=== PATIENT | male | born 1960 | race Two or more races ===

== ENCOUNTER 2016-08-30 20:47 | Inpatient (IN) | payer MEDICAID, OTHER ==
[2016-08-30] VITALS (8 sets, daily range): BP systolic 88–110; BP diastolic 54–84
[~2016-08-30] VITALS: Ht 185.4 cm; Wt 68.0 kg
--- NOTE | 2016-08-30 20:54 | Emergency Room Report ---
History of Present Illness General Source: Patient Present Illness HPI This is a 56 male brought in by EMS after increased difficulty breathing postoperatively. The patient had surgical fusion of cervical vertebra and had been having some postoperative desaturation. Patient was subsequently re intubated. The patient prior history of cervical disc disease with weakness. The patient had been moving all his extremities. Patient was given steroids and antibiotics after surgery. Patient not been vomiting or having fever. The patient was sent to the hospital after being intubated. Allergies: Coded Allergies: No Known Allergies (Unverified , 08/30/16) Patient History Past Medical History: see triage record Reviewed Nursing Documentation: PMH: Agreed, PSxH: Agreed Nursing Documentation-PMH Past Medical History Deferred: Patient Unconscious Review of Systems All Other Systems: limited - by acuity Physical Exam Sp02 EP Interpretation: normal General Appearance: moderate distress Neck: other - post surgical changes surgical drain in place Respiratory: lungs clear, normal breath sounds Cardiovascular #1: normal peripheral pulses, regular rate, rhythm, no edema Gastrointestinal: normal bowel sounds, non tender, soft, no mass, no organomegaly Musculoskeletal: normal inspection, back normal 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 Total critical care time excluding procedures approximately 45 minutes. Medical Decision Making Diagnostic Impression: Primary Impression: Respiratory failure Additional Impressions: Stridor Diabetes mellitus History of neck surgery ER Course Patient presented after a recurrent difficulty extubation requiring reintubation. Differential diagnosis included was not limited to laryngeal spasm, pneumonia, sedation, among others.Because of complexity of patient's case laboratory testing and imaging studies were ordered. Chest x-ray one view interpreted by me post intubation showed adequate endotracheal tube. There is no evident infiltrate. Patient noted have equal breath sounds bilaterally.Patient was given etomidate initially after marked agitation. Patient was subsequently given started on a propofol drip. Patient was noted to have prior history of diabetes. Patient started on sliding scale. Patient was discussed with Dr. Madera Labs Test 08/30/16 20:49 08/30/16 21:48 White Blood Count 15.5 K/UL (4.8-10.8) Red Blood Count 4.09 M/UL (4.70-6.10) Hemoglobin 13.3 G/DL (14.2-18.0) Hematocrit 39.8 % (42.0-52.0) Mean Corpuscular Volume 97 FL (80-99) Mean Corpuscular Hemoglobin 32.6 PG (27.0-31.0) Mean Corpuscular Hemoglobin Concent 33.5 G/DL (32.0-36.0) Red Cell Distribution Width 11.7 % (11.6-14.8) Platelet Count 219 K/UL (150-450) Mean Platelet Volume 8.1 FL (6.5-10.1) Neutrophils (%) (Auto) 89.6 % (45.0-75.0) Lymphocytes (%) (Auto) 4.9 % (20.0-45.0) Monocytes (%) (Auto) 5.0 % (1.0-10.0) Eosinophils (%) (Auto) 0.0 % (0.0-3.0) Basophils (%) (Auto) 0.5 % (0.0-2.0) Prothrombin Time 10.3 SEC (9.30-11.50) Prothromb Time International Ratio 1.0 (0.9-1.1) Activated Partial Thromboplast Time 22 SEC (23-33) Sodium Level 142 mEQ/L (135-145) Potassium Level 3.2 mEQ/L (3.4-4.9) Chloride Level 100 mEQ/L (98-107) Carbon Dioxide Level 26 mEQ/L (20-30) Anion Gap 16 (5-15) Blood Urea Nitrogen 15 mg/dL (7-23) Creatinine 0.6 mg/dL (0.7-1.2) Estimat Glomerular Filtration Rate > 60 mL/min (>60) Glucose Level 171 mg/dL (74-106) Calcium Level 7.7 mg/dL (8.6-10.2) Total Bilirubin 0.3 mg/dL (0.0-1.2) Aspartate Amino Transf (AST/SGOT) 18 U/L (5-40) Alanine Aminotransferase (ALT/SGPT) 12 U/L (3-41) Alkaline Phosphatase 42 U/L (40-129) Total Protein 5.5 g/dL (6.6-8.7) Albumin 3.3 g/dL (3.5-5.2) Globulin 2.2 g/dL Albumin/Globulin Ratio 1.5 (1.0-2.7) Arterial Blood pH 7.350 (7.350-7.450) Arterial Blood Partial Pressure CO2 49.2 mmHg (35.0-45.0) Arterial Blood Partial Pressure O2 103.0 mmHg (75.0-100.0) Arterial Blood HCO3 27.1 mmol/L (22.0-26.0) Arterial Blood Oxygen Saturation 97.9 % (92.0-98.0) Arterial Blood Base Excess 1.0 Edmund Test Positive EKG Diagnostic Results Rate: normal - 103 Rhythm: NSR ST Segments: no acute changes Rhythm Strip Diag. Results EP Interpretation: yes Rhythm: NSR, no PVC's, no ectopy Chest X-Ray Diagnostic Results EP Interpretation: Yes Findings: no consolidation, no effusion, no pneumothorax, no acute cardiopulmonary disease, other - adequate ETT Number of Views: 1 Status: unchanged Disposition: ADMITTED INPATIENT Condition: Critical Rik Ware Aug 30, 2016 20:54
[2016-08-30] MEDS ORDERED: Etomidate 40mg/20ml Inj IV ONE (21:00)
[2016-08-30 21:51] LABS: ABG ALLEN TEST POSITIVE; ABG PCO2 49.2 mmHg (35.0-45.0)
[2016-08-30 22:19] LABS: BASOPHILS % (AUTO) 0.5 % (0.0-2.0); LYMPHOCYTES % (AUTO) 4.9 % (20.0-45.0); MEAN CORPUSCULAR HEMOGLOBIN 32.6 PG (27.0-31.0); MEAN CORPUSCULAR HGB CONC 33.5 G/DL (32.0-36.0); MEAN CORPUSCULAR VOLUME 97 FL (80-99); MEAN PLATELET VOLUME 8.1 FL (6.5-10.1); NEUTROPHILS % (AUTO) 89.6 % (45.0-75.0); PLATELET COUNT 219 K/UL (150-450); RED BLOOD COUNT 4.09 M/UL (4.70-6.10); RED CELL DISTRIBUTION WIDTH 11.7 % (11.6-14.8); WHITE BLOOD COUNT 15.5 K/UL (4.8-10.8)
[2016-08-30 22:22] LABS: PROTHROMBIN TIME 10.3 SEC (9.30-11.50)
[2016-08-30 22:44] LABS: ALANINE AMINOTRANSFERASE 12 U/L (3-41); ALBUMIN/GLOBULIN RATIO 1.5 (1.0-2.7); ANION GAP 16 (5-15); ASPARTATE AMINO TRANSFERASE 18 U/L (5-40); CALCIUM 7.7 mg/dL (8.6-10.2); CARBON DIOXIDE 26 mEQ/L (20-30); CHLORIDE 100 mEQ/L (98-107); CREATININE 0.6 mg/dL (0.7-1.2); GLOMERULAR FILTRATION RATE > 60 mL/min (>60); HEMOLYSIS 17; POTASSIUM 3.2 mEQ/L (3.4-4.9); SODIUM 142 mEQ/L (135-145); TOTAL PROTEIN 5.5 g/dL (6.6-8.7)
[2016-08-31] VITALS (14 sets, daily range): BP systolic 92–135; BP diastolic 58–89
[2016-08-31] MEDS: NovoLOG Insulin Flexpen SUBQ SCH ×5 (02:07→22:11)
[2016-08-31] MEDS ORDERED: Morphine Sulfate 4mg/ml Inj IVP ONE (03:15)
[2016-08-31 03:43] LABS: MEAN CORPUSCULAR HEMOGLOBIN 32.5 PG (27.0-31.0); MEAN CORPUSCULAR HGB CONC 34.4 G/DL (32.0-36.0); MEAN CORPUSCULAR VOLUME 95 FL (80-99); MEAN PLATELET VOLUME 7.1 FL (6.5-10.1); PLATELET COUNT 233 K/UL (150-450); RED BLOOD COUNT 3.96 M/UL (4.70-6.10); RED CELL DISTRIBUTION WIDTH 11.3 % (11.6-14.8); WHITE BLOOD COUNT 17.8 K/UL (4.8-10.8)
[2016-08-31 04:01] LABS: ANION GAP 16 (5-15); CALCIUM 8.6 mg/dL (8.6-10.2); CARBON DIOXIDE 24 mEQ/L (20-30); CHLORIDE 95 mEQ/L (98-107); CREATININE 0.5 mg/dL (0.7-1.2); GLOMERULAR FILTRATION RATE > 60 mL/min (>60); HEMOLYSIS 35; POTASSIUM 4.9 mEQ/L (3.4-4.9); SODIUM 135 mEQ/L (135-145)
[2016-08-31 04:17] LABS: TROPONIN I < 0.30 ng/mL (<=0.30)
[2016-08-31] MEDS ORDERED: Dexamethasone 4mg/ml vial ONE (06:00)
[2016-08-31] MEDS ORDERED: Dexamethasone 4mg/ml vial IVP ONE (06:15)
[2016-08-31] MEDS ORDERED: Racemic EPINEPHrine 2.25% 0.5ml HHN ONE (07:00)
[2016-08-31] MEDS ORDERED: SOMA350 MG PO (10:32)
[2016-08-31] MEDS ORDERED: ATIVAN0.5 MG ORAL (10:32)
[2016-08-31] MEDS ORDERED: XANAX0.25 MG ORAL (10:32)
[2016-08-31] MEDS ORDERED: Morphine Sulfate 2mg/ml Inj IVP PRN ×2 (13:00→18:00)
--- NOTE | 2016-08-31 13:00 | Diagnostic Imaging Report ---
Indication: Dyspnea Comparison: None A single view chest radiograph was obtained. Findings: Platelike atelectasis at the right lung base demonstrated. There is a central line present on the right. The tip crosses midline and may be in the left innominate vein. Endotracheal tube position is satisfactory. Heart size is normal. The bones are osteopenic. Impression: Right subclavian central line as described above Endotracheal tube in good position Mild right basal atelectasis
[2016-08-31] MEDS ORDERED: Albuterol ud Inhalation HHN PRN (13:15)
[2016-08-31] MEDS: LORazepam Inj 2mg/ml 1ml IV PRN ×3 (13:26→22:01)
[2016-08-31] MEDS ORDERED: Albuterol ud Inhalation HHN SCH (15:00)
--- NOTE | 2016-08-31 15:33 | Cardiology Report ---
APPROVED REPORT EKG Measurement Heart [id number] Sinus tachycardia Otherwise normal ECG
--- NOTE | 2016-08-31 19:28 | History and Physical Report ---
DATE OF ADMISSION: 08/30/2016 HISTORY OF PRESENT ILLNESS: The patient is a 56-year-old male undergoing surgical fusion. The patient postoperatively was noted to have stridor. [facility], the patient was transferred to the emergency room. The patient was intubated and now extubated, remained stable with no significant stridor noted . PAST MEDICAL HISTORY: Notable for cervical disk disease, significant radiculopathy and weakness, history of alcohol use, history of smoking, MEDICATIONS: Reviewed. ALLERGIES: Reviewed. PHYSICAL EXAMINATION: GENERAL: The patient is a well-developed male. The patient is alert, no significant distress. VITAL SIGNS: Blood pressure 134/72, pulse 104, respirations 16, saturation 100%. HEENT: Negative. NECK: Supple. No stridor, line noted. LUNGS: Good air entry. CARDIAC: S1 and S2. Borderline tachycardia. ABDOMEN: Soft, nontender. EXTREMITIES: No edema. LABORATORY DATA: Reviewed. Arterial blood gasses, pH 7.35, pCO2 49, pO2 103. White cell count 17.8, hematocrit 37. IMPRESSION: 1. Status post cervical fusion with associated stridor. 2. Leukocytosis. 3. Diabetes. 4. Cervical disk disease. RECOMMENDATIONS: [facility]. Monitor airway, nebulized therapy, racemic epinephrine if needed, and if the patient is otherwise stable we will transfer him. Michele Madera M.D. DR: Citlalli JOB#: [id number] CC: CELI
[2016-08-31] MEDS: Morphine Sulfate 4mg/ml Inj IVP PRN ×2 (19:30→23:17)
[2016-08-31] MEDS: Albuterol ud Inhalation HHN SCH ×2 (19:54→23:00)
[2016-08-31] MEDS: Levemir Flexpen SUBQ SCH (22:10)
[2016-08-31] MEDS ORDERED: LANTUS SOL100 UNIT/1 SUBQ (22:33)
[2016-08-31] MEDS ORDERED: NORCO 10-325 T1 EACH ORAL (22:33)
[2016-09-01] VITALS: BP 110/65
[2016-09-01] MEDS: LORazepam Inj 2mg/ml 1ml IV PRN ×2 (01:47→22:49)
[2016-09-01] MEDS: Morphine Sulfate 4mg/ml Inj IVP PRN (02:54)
[2016-09-01] MEDS: Albuterol ud Inhalation HHN SCH ×6 (02:56→23:19)
[2016-09-01 04:00] VITALS: BP 113/73
[2016-09-01] MEDS: NovoLOG Insulin Flexpen SUBQ SCH ×4 (06:30→21:16)
[2016-09-01 07:08] LABS: ANION GAP 14 (5-15); CALCIUM 8.6 mg/dL (8.6-10.2); CARBON DIOXIDE 28 mEQ/L (20-30); CHLORIDE 99 mEQ/L (98-107); CREATININE 0.5 mg/dL (0.7-1.2); GLOMERULAR FILTRATION RATE > 60 mL/min (>60); HEMOLYSIS 2; POTASSIUM 3.8 mEQ/L (3.4-4.9); SODIUM 141 mEQ/L (135-145)
[2016-09-01 07:13] LABS: EOSINOPHILS % (AUTO) 0.5 % (0.0-3.0); LYMPHOCYTES % (AUTO) 20.3 % (20.0-45.0); MEAN CORPUSCULAR HEMOGLOBIN 32.2 PG (27.0-31.0); MEAN CORPUSCULAR HGB CONC 33.9 G/DL (32.0-36.0); MEAN CORPUSCULAR VOLUME 95 FL (80-99); MEAN PLATELET VOLUME 7.8 FL (6.5-10.1); MONOCYTES % (AUTO) 14.3 % (1.0-10.0); NEUTROPHILS % (AUTO) 63.9 % (45.0-75.0); PLATELET COUNT 238 K/UL (150-450); RED BLOOD COUNT 4.07 M/UL (4.70-6.10); RED CELL DISTRIBUTION WIDTH 11.4 % (11.6-14.8); WHITE BLOOD COUNT 11.2 K/UL (4.8-10.8)
[2016-09-01 08:15] VITALS: BP 126/79
--- NOTE | 2016-09-01 09:03 | General Progress Note ---
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 incentive spirometry 2. monitor blood sugars 3. PT evaluation and therapy 4. Hydration 5. Pain management 6. discharge once stable to [facility] Subjective Allergies: Coded Allergies: No Known Allergies (Unverified , 08/30/16) Subjective awake no sob Objective Last 24 Hour Vital Signs Date Time Temp Pulse Resp B/P Pulse Ox O2 Delivery O2 Flow Rate FiO2 09/01/16 08:15 97.8 111 20 126/79 95 Room Air 09/01/16 08:00 103 19 100 Nasal Cannula 2.0 09/01/16 07:50 103 16 97 Nasal Cannula 2.0 09/01/16 07:49 Nasal Cannula 2.0 09/01/16 07:48 97 Nasal Cannula 2.0 09/01/16 04:00 97.4 98 16 113/73 98 Room Air 09/01/16 03:06 107 14 98 Nasal Cannula 2.0 28 09/01/16 02:59 28 09/01/16 02:58 105 18 96 Nasal Cannula 2.0 28 09/01/16 00:00 97.9 109 16 110/65 95 Room Air 08/31/16 23:12 Nasal Cannula 08/31/16 23:11 108 18 99 Nasal Cannula 3.0 32 08/31/16 20:00 98.4 08/31/16 19:59 114 20 99 Nasal Cannula 2.0 28 08/31/16 19:53 98 Nasal Cannula 2.0 28 08/31/16 19:53 Nasal Cannula 2.0 28 08/31/16 19:51 28 08/31/16 19:51 110 20 98 Nasal Cannula 2.0 36 08/31/16 16:00 98.4 96 18 124/76 96 Room Air 08/31/16 14:34 99 18 117/70 100 Nasal Cannula 2.0 08/31/16 14:04 98.0 08/31/16 11:00 100 18 135/76 100 Nasal Cannula 2.0 08/31/16 10:36 94 12 Nasal Cannula 2.0 36 08/31/16 10:05 94 12 119/79 100 Nasal Cannula 2.0 Intake and Output 08/31/16 09/01/16 19:00 07:00 Intake Total 400 ml 640 ml Output Total 3675 ml 1175 ml Balance -3275 ml -535 ml Intake Oral 240 ml IV Total 400 ml 400 ml Output Urine Total 3500 ml 1175 ml Drainage Total 175 ml # Bowel Movements 1 Laboratory Tests 09/01/16 06:00: White Blood Count 11.2H, Red Blood Count 4.07L, Hemoglobin 13.1L, Hematocrit 38.5L, Mean Corpuscular Volume 95, Mean Corpuscular Hemoglobin 32.2H, Mean Corpuscular Hemoglobin Concent 33.9, Red Cell Distribution Width 11.4L, Platelet Count 238, Mean Platelet Volume 7.8, Neutrophils (%) (Auto) 63.9, Lymphocytes (%) (Auto) 20.3, Monocytes (%) (Auto) 14.3H, Eosinophils (%) (Auto) 0.5, Basophils (%) (Auto) 1.0, Sodium Level 141, Potassium Level 3.8, Chloride Level 99, Carbon Dioxide Level 28, Anion Gap 14, Blood Urea Nitrogen 8, Creatinine 0.5L, Estimat Glomerular Filtration Rate > 60, Glucose Level 102#, Calcium Level 8.6 Height (Feet): 6 Height (Inches): 1.00 Weight (Pounds): 150 Objective WDWN NAD clear breath sounds bilaterally without rhonchi or wheeze S1S2RR tachy without MRG NABS nontender no HSM no CCE nonfocal ELIAZAR SAGASTUME Sep 01, 2016 09:03
[2016-09-01] MEDS: Levemir Flexpen SUBQ SCH ×2 (09:39→21:14)
[2016-09-01] MEDS: HYDROmorphone 1mg/ml Carpuject IVP PRN ×4 (09:40→21:12)
[2016-09-01 11:23] VITALS: BP 110/71
[2016-09-01 15:41] VITALS: BP 120/71
[2016-09-01 20:00] VITALS: BP 105/61
[2016-09-02] VITALS: BP 120/84
[2016-09-02] MEDS: HYDROmorphone 1mg/ml Carpuject IVP PRN ×3 (03:45→21:42)
[2016-09-02 04:00] VITALS: BP 114/76
[2016-09-02] MEDS: Albuterol ud Inhalation HHN SCH ×6 (04:29→23:08)
[2016-09-02] MEDS: LORazepam Inj 2mg/ml 1ml IV PRN ×2 (04:44→13:36)
[2016-09-02] MEDS: NovoLOG Insulin Flexpen SUBQ SCH ×4 (06:05→21:44)
[2016-09-02] MEDS: Levemir Flexpen SUBQ SCH ×2 (08:00→21:44)
[2016-09-02 08:34] VITALS: BP 144/68
--- NOTE | 2016-09-02 08:40 | General Progress Note ---
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 (3) Respiratory failure ICD Codes: J96.90 - Respiratory failure, unspecified, unspecified whether with hypoxia or hypercapnia SNOMED: 348935215 Qualifiers: Qualified Codes: J96.01 - Acute respiratory failure with hypoxia Assessment/Plan continue same drain 90 cc over 24 hours dc in am dc planning to SNF Subjective Allergies: Coded Allergies: No Known Allergies (Unverified , 08/30/16) Subjective awake no sob Objective Last 24 Hour Vital Signs Date Time Temp Pulse Resp B/P Pulse Ox O2 Delivery O2 Flow Rate FiO2 09/02/16 08:34 97.5 84 20 144/68 96 Room Air 09/02/16 08:11 82 16 98 Room Air 09/02/16 08:11 80 16 94 Room Air 09/02/16 07:45 95 Room Air 09/02/16 07:45 Room Air 09/02/16 04:34 90 18 100 Room Air 09/02/16 04:28 82 16 96 Room Air 09/02/16 04:00 97.5 79 18 114/76 97 Room Air 09/02/16 00:00 97.3 84 16 120/84 96 Room Air 09/01/16 23:31 96 18 99 Room Air 09/01/16 23:18 86 16 97 Room Air 09/01/16 22:00 98.1 09/01/16 20:00 98.1 84 16 105/61 96 Room Air 09/01/16 19:48 92 18 100 Room Air 09/01/16 19:43 90 16 97 Room Air 09/01/16 19:43 Room Air 09/01/16 19:43 97 Room Air 09/01/16 15:47 Room Air 09/01/16 15:45 Room Air 09/01/16 15:41 97.7 84 15 120/71 95 Room Air 09/01/16 11:59 18 100 Room Air 09/01/16 11:50 80 16 96 Room Air 09/01/16 11:23 97.3 89 20 110/71 97 Room Air Intake and Output 09/01/16 09/02/16 19:00 07:00 Intake Total 1560 ml 1440 ml Output Total 630 ml 1920 ml Balance 930 ml -480 ml Intake Oral 360 ml 540 ml IV Total 1200 ml 900 ml Output Urine Total 600 ml 1900 ml Drainage Total 30 ml 20 ml # Bowel Movements 2 Height (Feet): 6 Height (Inches): 1.00 Weight (Pounds): 150 Objective WDWN NAD clear breath sounds bilaterally without rhonchi or wheeze S1S2RR tachy without MRG NABS nontender no HSM no CCE nonfocal ELIAZAR SAGASTUME Sep 02, 2016 08:40
[2016-09-02 12:02] VITALS: BP 136/69
[2016-09-02 16:00] VITALS: BP 154/73
[2016-09-02 20:00] VITALS: BP 103/68
[2016-09-03] VITALS: BP 105/72
[2016-09-03] MEDS: LORazepam Inj 2mg/ml 1ml IV PRN ×3 (00:22→21:51)
[2016-09-03] MEDS: Albuterol ud Inhalation HHN SCH ×6 (03:10→23:00)
[2016-09-03] MEDS: HYDROmorphone 1mg/ml Carpuject IVP PRN ×2 (03:51→08:13)
[2016-09-03 04:00] VITALS: BP 112/71
[2016-09-03] MEDS: NovoLOG Insulin Flexpen SUBQ SCH ×4 (07:09→21:58)
[2016-09-03 07:57] VITALS: BP 116/74
[2016-09-03] MEDS ORDERED: Bacitracin Oint UD TOPIC PRN (08:00)
[2016-09-03] MEDS: Levemir Flexpen SUBQ SCH ×2 (08:13→21:59)
--- NOTE | 2016-09-03 08:18 | General Progress Note ---
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 (3) Respiratory failure ICD Codes: J96.90 - Respiratory failure, unspecified, unspecified whether with hypoxia or hypercapnia SNOMED: 750229204 Qualifiers: Qualified Codes: J96.01 - Acute respiratory failure with hypoxia Assessment/Plan drains removed reduce pain meds dc planning to SNF Subjective Allergies: Coded Allergies: No Known Allergies (Unverified , 08/30/16) Subjective awake no sob Objective Last 24 Hour Vital Signs Date Time Temp Pulse Resp B/P Pulse Ox O2 Delivery O2 Flow Rate FiO2 09/03/16 07:57 98.0 66 18 116/74 96 Room Air 09/03/16 06:55 66 18 99 Room Air 09/03/16 06:49 65 18 96 Room Air 09/03/16 04:00 98.4 86 19 112/71 98 Room Air 09/03/16 03:16 94 20 98 Room Air 09/03/16 03:09 92 18 96 Room Air 09/03/16 00:00 98.2 83 20 105/72 98 Room Air 09/02/16 23:17 92 18 98 Room Air 09/02/16 23:08 90 18 97 Room Air 09/02/16 22:12 98.6 09/02/16 20:00 98.6 92 20 103/68 97 Room Air 09/02/16 19:07 90 18 99 Room Air 09/02/16 19:00 85 18 96 Room Air 09/02/16 18:59 96 Room Air 09/02/16 18:59 Room Air 09/02/16 16:00 98.6 61 20 154/73 97 Room Air 18 09/02/16 15:15 86 18 95 Room Air 09/02/16 12:02 97.8 86 20 136/69 95 Room Air 20 09/02/16 08:34 97.5 84 20 144/68 96 Room Air Intake and Output 09/02/16 09/03/16 19:00 07:00 Intake Total 1800 ml 1340 ml Output Total 1820 ml 664 ml Balance -20 ml 676 ml Intake Oral 1100 ml 240 ml IV Total 700 ml 1100 ml Output Urine Total 1800 ml 650 ml Drainage Total 20 ml 14 ml Height (Feet): 6 Height (Inches): 1.00 Weight (Pounds): 150 Objective WDWN NAD clear breath sounds bilaterally without rhonchi or wheeze S1S2RR tachy without MRG NABS nontender no HSM no CCE nonfocal ELIAZAR SAGASTUME Sep 03, 2016 08:18
[2016-09-03] MEDS ORDERED: Norco 5mg/325mg tab ORAL PRN (10:30)
[2016-09-03 11:22] LABS: BASOPHILS % (AUTO) 0.7 % (0.0-2.0); EOSINOPHILS % (AUTO) 0.3 % (0.0-3.0); LYMPHOCYTES % (AUTO) 11.1 % (20.0-45.0); MEAN CORPUSCULAR HEMOGLOBIN 31.4 PG (27.0-31.0); MEAN CORPUSCULAR HGB CONC 33.4 G/DL (32.0-36.0); MEAN CORPUSCULAR VOLUME 94 FL (80-99); MEAN PLATELET VOLUME 6.6 FL (6.5-10.1); MONOCYTES % (AUTO) 8.1 % (1.0-10.0); NEUTROPHILS % (AUTO) 79.9 % (45.0-75.0); PLATELET COUNT 305 K/UL (150-450); RED BLOOD COUNT 4.15 M/UL (4.70-6.10); RED CELL DISTRIBUTION WIDTH 10.9 % (11.6-14.8); WHITE BLOOD COUNT 11.8 K/UL (4.8-10.8)
[2016-09-03 11:55] LABS: ANION GAP 13 (5-15); CARBON DIOXIDE 30 mEQ/L (20-30); CHLORIDE 97 mEQ/L (98-107); CREATININE 0.4 mg/dL (0.7-1.2); GLOMERULAR FILTRATION RATE > 60 mL/min (>60); HEMOLYSIS 3; POTASSIUM 3.6 mEQ/L (3.4-4.9); SODIUM 140 mEQ/L (135-145)
[2016-09-03 12:26] VITALS: BP 112/68
[2016-09-03 16:00] VITALS: BP 118/74
[2016-09-03 19:00] VITALS: BP 108/80
[2016-09-03] MEDS: Norco 10mg/325mg tab ORAL PRN (20:36)
[2016-09-04] VITALS: BP 101/65
[2016-09-04] MEDS: Norco 10mg/325mg tab ORAL PRN ×3 (00:28→17:34)
[2016-09-04] MEDS: LORazepam Inj 2mg/ml 1ml IV PRN ×2 (01:20→11:43)
[2016-09-04] MEDS: Albuterol ud Inhalation HHN SCH ×6 (03:00→22:00)
[2016-09-04 04:00] VITALS: BP 105/64
[2016-09-04] MEDS: NovoLOG Insulin Flexpen SUBQ SCH ×4 (06:24→21:25)
[2016-09-04 08:00] VITALS: BP 116/74
[2016-09-04] MEDS: Levemir Flexpen SUBQ SCH ×2 (09:00→21:26)
--- NOTE | 2016-09-04 10:10 | General Progress Note ---
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 (3) Respiratory failure ICD Codes: J96.90 - Respiratory failure, unspecified, unspecified whether with hypoxia or hypercapnia SNOMED: 436193930 Qualifiers: Qualified Codes: J96.01 - Acute respiratory failure with hypoxia Assessment/Plan drains removed tolerating pain meds off IV fluids po pain meds dc planning to SNF Subjective Allergies: Coded Allergies: No Known Allergies (Unverified , 08/30/16) Subjective awake no sob Objective Last 24 Hour Vital Signs Date Time Temp Pulse Resp B/P Pulse Ox O2 Delivery O2 Flow Rate FiO2 09/04/16 08:37 103 16 99 Room Air 21 09/04/16 08:21 101 16 96 Room Air 21 09/04/16 08:21 21 09/04/16 04:00 97.0 80 18 105/64 97 Room Air 09/04/16 03:00 Room Air 09/04/16 03:00 78 16 95 Room Air 09/04/16 01:27 97.7 09/04/16 00:00 97.7 76 18 101/65 100 Room Air 09/03/16 23:28 Room Air 09/03/16 23:28 72 18 95 Room Air 09/03/16 19:34 97.7 09/03/16 19:20 Room Air 09/03/16 19:20 76 18 96 Room Air 09/03/16 19:00 97.5 90 20 108/80 97 Room Air 09/03/16 16:00 97.7 100 20 118/74 96 Room Air 09/03/16 15:46 Room Air 09/03/16 15:44 Room Air 09/03/16 12:26 97.7 68 18 112/68 95 Room Air 09/03/16 10:19 67 18 96 Room Air 09/03/16 10:18 67 18 96 Room Air Intake and Output 09/03/16 09/04/16 19:00 07:00 Intake Total 1240 ml 440 ml Output Total 200 ml Balance 1240 ml 240 ml Intake Oral 240 ml 320 ml IV Total 1000 ml Tube Feeding 120 ml Output Urine Total 200 ml # Voids 1 8 Laboratory Tests 09/03/16 10:45: White Blood Count 11.8H, Red Blood Count 4.15L, Hemoglobin 13.0L, Hematocrit 39.0L, Mean Corpuscular Volume 94, Mean Corpuscular Hemoglobin 31.4H, Mean Corpuscular Hemoglobin Concent 33.4, Red Cell Distribution Width 10.9L, Platelet Count 305, Mean Platelet Volume 6.6, Neutrophils (%) (Auto) 79.9H, Lymphocytes (%) (Auto) 11.1L, Monocytes (%) (Auto) 8.1, Eosinophils (%) (Auto) 0.3, Basophils (%) (Auto) 0.7, Sodium Level 140, Potassium Level 3.6, Chloride Level 97L, Carbon Dioxide Level 30, Anion Gap 13, Blood Urea Nitrogen 7, Creatinine 0.4L, Estimat Glomerular Filtration Rate > 60, Glucose Level 42L, Calcium Level 9.0 Height (Feet): 6 Height (Inches): 1.00 Weight (Pounds): 150 Objective WDWN NAD clear breath sounds bilaterally without rhonchi or wheeze S1S2RR tachy without MRG NABS nontender no HSM no CCE nonfocal ELIAZAR SAGASTUME Sep 04, 2016 10:10
[2016-09-04 12:00] VITALS: BP 107/62
[2016-09-04 19:35] VITALS: BP 125/69
[2016-09-04] MEDS: Zolpidem 5mg tab ORAL PRN (21:16)
[2016-09-04 23:26] VITALS: BP_SYST 105; BP_SYST 83; BP_DIAS 50; BP_DIAS 70
[2016-09-05] MEDS: Albuterol ud Inhalation HHN SCH ×4 (03:00→15:30)
[2016-09-05 04:00] VITALS: BP 116/91
[2016-09-05] MEDS: Norco 10mg/325mg tab ORAL PRN ×4 (04:22→20:10)
[2016-09-05] MEDS: NovoLOG Insulin Flexpen SUBQ SCH ×4 (06:30→21:00)
[2016-09-05 07:55] VITALS: BP 105/72
[2016-09-05] MEDS: Levemir Flexpen SUBQ SCH ×2 (08:05→21:23)
--- NOTE | 2016-09-05 11:08 | General Progress Note ---
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 (3) Respiratory failure ICD Codes: J96.90 - Respiratory failure, unspecified, unspecified whether with hypoxia or hypercapnia SNOMED: 299240754 Qualifiers: Qualified Codes: J96.01 - Acute respiratory failure with hypoxia Assessment/Plan drains removed tolerating pain meds po pain meds dc planning today to SNF Subjective Allergies: Coded Allergies: No Known Allergies (Unverified , 08/30/16) Subjective awake wants to smoke Objective Last 24 Hour Vital Signs Date Time Temp Pulse Resp B/P Pulse Ox O2 Delivery O2 Flow Rate FiO2 09/05/16 10:57 88 19 95 Room Air 2.0 09/05/16 10:57 88 19 95 Room Air 09/05/16 07:55 97.3 86 18 105/72 96 Room Air 09/05/16 07:00 21 09/05/16 07:00 95 18 99 Room Air 09/05/16 07:00 95 19 99 Room Air 09/05/16 04:00 97.7 98 19 116/91 92 Room Air 09/05/16 03:10 99 18 99 Room Air 09/05/16 03:00 92 18 96 Room Air 09/05/16 03:00 21 09/04/16 23:26 96.9 78 16 105/70 96 Room Air 09/04/16 22:10 102 18 98 Room Air 09/04/16 22:00 97 18 95 Room Air 09/04/16 19:35 97.7 117 17 125/69 93 Room Air 09/04/16 19:00 Room Air 09/04/16 19:00 97 18 Room Air 09/04/16 19:00 Room Air 09/04/16 15:51 Room Air 09/04/16 15:51 Room Air 09/04/16 12:10 106 18 99 Room Air 09/04/16 12:05 21 09/04/16 12:04 70 18 97 Room Air 09/04/16 12:00 99.1 89 18 107/62 96 09/04/16 11:59 97.0 Intake and Output 09/04/16 09/05/16 19:00 07:00 Intake Total 250 ml 720 ml Balance 250 ml 720 ml Intake Oral 250 ml 720 ml # Voids 4 5 Height (Feet): 6 Height (Inches): 1.00 Weight (Pounds): 150 Objective WDWN NAD clear breath sounds bilaterally without rhonchi or wheeze S1S2RR tachy without MRG NABS nontender no HSM no CCE nonfocal ELIAZAR SAGASTUME Sep 05, 2016 11:08
[2016-09-05 11:22] VITALS: BP 101/63
[2016-09-05 16:00] VITALS: BP 106/59
[2016-09-05 20:00] VITALS: BP 123/70
[2016-09-05] MEDS: Zolpidem 5mg tab ORAL PRN (22:25)
[2016-09-06] VITALS: BP 104/77
[2016-09-06] MEDS: Norco 10mg/325mg tab ORAL PRN ×5 (00:54→23:07)
[2016-09-06] MEDS: LORazepam Inj 2mg/ml 1ml IV PRN (03:16)
[2016-09-06 04:00] VITALS: BP 104/73
[2016-09-06] MEDS: NovoLOG Insulin Flexpen SUBQ SCH ×4 (06:21→23:01)
--- NOTE | 2016-09-06 07:53 | General Progress Note ---
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 (3) Respiratory failure ICD Codes: J96.90 - Respiratory failure, unspecified, unspecified whether with hypoxia or hypercapnia SNOMED: 107478473 Qualifiers: Qualified Codes: J96.01 - Acute respiratory failure with hypoxia Assessment/Plan drains removed tolerating pain meds po pain meds dc planning patient wants to go home Subjective Allergies: Coded Allergies: No Known Allergies (Unverified , 08/30/16) Subjective awake wants to smoke Objective Last 24 Hour Vital Signs Date Time Temp Pulse Resp B/P Pulse Ox O2 Delivery O2 Flow Rate FiO2 09/06/16 04:00 97.4 99 18 104/73 96 Room Air 09/06/16 00:00 98.2 96 18 104/77 95 Room Air 09/05/16 21:09 97.7 09/05/16 20:00 98.4 101 20 123/70 96 Room Air 09/05/16 19:47 80 18 97 Room Air 21 09/05/16 19:46 21 09/05/16 19:46 80 18 95 Room Air 2.0 21 09/05/16 17:12 97.7 09/05/16 16:00 97.9 88 22 106/59 96 Room Air 09/05/16 15:30 90 18 95 Room Air 2.0 09/05/16 11:22 97.7 78 19 101/63 98 Room Air 09/05/16 10:57 88 19 95 Room Air 2.0 21 09/05/16 10:57 88 19 95 Room Air 21 09/05/16 07:55 97.3 86 18 105/72 96 Room Air Intake and Output 09/05/16 09/06/16 19:00 07:00 Intake Total 450 ml 1100 ml Output Total 400 ml Balance 50 ml 1100 ml Intake Oral 450 ml 1100 ml Output Urine Total 400 ml # Voids 3 # Bowel Movements 1 Height (Feet): 6 Height (Inches): 1.00 Weight (Pounds): 150 Objective WDWN NAD clear breath sounds bilaterally without rhonchi or wheeze S1S2RR tachy without MRG NABS nontender no HSM no CCE nonfocal ELIAZAR SAGASTUME Sep 06, 2016 07:53
[2016-09-06 08:15] VITALS: BP 125/81
[2016-09-06] MEDS: Levemir Flexpen SUBQ SCH ×2 (11:09→23:02)
[2016-09-06 11:45] VITALS: BP 106/72
[2016-09-06 16:15] VITALS: BP 120/70
[2016-09-06 20:00] VITALS: BP 94/66
[2016-09-07] VITALS: BP 110/67
[2016-09-07 04:00] VITALS: BP 102/62
[2016-09-07] MEDS: Norco 10mg/325mg tab ORAL PRN ×5 (05:36→22:45)
[2016-09-07] MEDS: NovoLOG Insulin Flexpen SUBQ SCH ×4 (05:43→23:00)
--- NOTE | 2016-09-07 06:41 | General Progress Note ---
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 (3) Respiratory failure ICD Codes: J96.90 - Respiratory failure, unspecified, unspecified whether with hypoxia or hypercapnia SNOMED: 722904217 Qualifiers: Qualified Codes: J96.01 - Acute respiratory failure with hypoxia Assessment/Plan drains removed tolerating pain meds po pain meds dc 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 for 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 Subjective Allergies: Coded Allergies: No Known Allergies (Unverified , 08/30/16) Subjective awake wants to smoke has some pain Objective Last 24 Hour Vital Signs Date Time Temp Pulse Resp B/P Pulse Ox O2 Delivery O2 Flow Rate FiO2 09/07/16 04:00 97.6 69 20 102/62 98 Room Air 09/07/16 00:00 97.2 61 20 110/67 97 Room Air 09/06/16 20:00 97.7 88 20 94/66 95 Room Air 09/06/16 18:37 97.5 09/06/16 16:15 97.5 55 20 120/70 97 Room Air 09/06/16 11:45 97.4 57 20 106/72 95 Room Air 09/06/16 08:15 96.6 90 21 125/81 95 Room Air Intake and Output 09/06/16 09/07/16 19:00 07:00 Intake Total 1160 ml 120 ml Output Total 700 ml 200 ml Balance 460 ml -80 ml Intake Oral 1160 ml 120 ml Output Urine Total 700 ml 200 ml # Voids 3 2 # Bowel Movements 2 Height (Feet): 6 Height (Inches): 1.00 Weight (Pounds): 150 Objective WDWN NAD clear breath sounds bilaterally without rhonchi or wheeze S1S2RR tachy without MRG NABS nontender no HSM no CCE nonfocal ELIAZAR SAGASTUME Sep 07, 2016 06:41
[2016-09-07 08:14] VITALS: BP 112/70
[2016-09-07] MEDS: Levemir Flexpen SUBQ SCH (09:06)
[2016-09-07 11:28] VITALS: BP 109/76
[2016-09-07 16:00] VITALS: BP 118/84
[2016-09-07 20:00] VITALS: BP 122/72
[2016-09-08] VITALS: BP 111/74
[2016-09-08] MEDS: Levemir Flexpen SUBQ SCH ×2 (00:36→09:00)
[2016-09-08 04:00] VITALS: BP 118/66
[2016-09-08] MEDS: Norco 10mg/325mg tab ORAL PRN ×4 (04:34→18:26)
[2016-09-08] MEDS: NovoLOG Insulin Flexpen SUBQ SCH ×3 (06:30→18:03)
[2016-09-08 07:40] VITALS: BP 117/77
--- NOTE | 2016-09-08 09:17 | General Progress Note ---
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 (3) Respiratory failure ICD Codes: J96.90 - Respiratory failure, unspecified, unspecified whether with hypoxia or hypercapnia SNOMED: 425105894 Qualifiers: Qualified Codes: J96.01 - Acute respiratory failure with hypoxia Assessment/Plan po pain meds dc planning d/w CM credit adjuster has given auth for SNF still awaiting placement Subjective Allergies: Coded Allergies: No Known Allergies (Unverified , 08/30/16) Subjective awake wants to smoke awaiting discharge Objective Last 24 Hour Vital Signs Date Time Temp Pulse Resp B/P Pulse Ox O2 Delivery O2 Flow Rate FiO2 09/08/16 07:40 97.7 81 16 117/77 98 Room Air 09/08/16 04:00 97.7 66 17 118/66 97 Room Air 09/08/16 00:00 97.9 70 18 111/74 98 Room Air 09/07/16 23:44 97.2 09/07/16 20:00 97.2 82 122/72 95 Room Air 09/07/16 16:00 98.2 84 18 118/84 90 Room Air 09/07/16 11:28 98.2 83 19 109/76 97 Room Air 09/07/16 10:29 98.2 Intake and Output 09/07/16 09/08/16 19:00 07:00 Intake Total 450 ml 480 ml Output Total 300 ml 200 ml Balance 150 ml 280 ml Intake Oral 450 ml 480 ml Output Urine Total 300 ml 200 ml # Voids 1 6 Height (Feet): 6 Height (Inches): 1.00 Weight (Pounds): 150 Objective WDWN NAD clear breath sounds bilaterally without rhonchi or wheeze [id number] tachy without MRG NABS nontender no HSM no CCE nonfocal ELIAZAR SAGASTUME Sep 08, 2016 09:17
[2016-09-08 11:31] VITALS: BP 109/66
[2016-09-08] MEDS ORDERED: Ibuprofen Susp 100mg/5ml ORAL PRN (14:15)
[2016-09-08] MEDS ORDERED: ALPRAZolam 0.5mg tab ORAL PRN (15:00)
[2016-09-08 15:54] VITALS: BP 105/75
[2016-09-08] MEDS ORDERED: TYLENOL650 MG/20. ORAL (17:21)
[2016-09-08] MEDS ORDERED: XANAX0.5 MG ORAL (17:23)
[2016-09-08] MEDS ORDERED: BACITRACIN1 EACH TOPIC (17:24)
[2016-09-08] MEDS ORDERED: NORCO 10-325 T1 EACH ORAL (17:26)
[2016-09-08] MEDS ORDERED: AMBIEN5 MG ORAL (17:28)
[2016-09-08] MEDS ORDERED: IBUPROFEN600 MG ORAL (17:28)
[2016-09-08] MEDS ORDERED: NOVOLOG100 UNITS1 (17:29)
[2016-09-08] MEDS ORDERED: LEVEMIR100 UNIT/1 SUBQ (17:31)
--- NOTE | 2016-09-09 16:52 | Discharge Summary ---
Discharge Summary Hospital Course Date of Admission Aug 30, 2016 at 23:52 Date of Discharge Sep 08, 2016 at 19:00 Admitting Diagnosis respiratory failure ZOË Conteh is a 56 year old male who was admitted on Aug 30, 2016 at 23:52 for Respiratory Distress Hospital Course [id number] Discharge Discharge Disposition Patient was discharged to snf Discharge Diagnoses: Adele Hopson NP Sep 09, 2016 16:52
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
== END 2016-09-08 19:00 | DRG 208 ==
LOC: EDBD 20:47 → EMR 20:59 → 3E 23:52 → EDBEDREQSVC 08-31 12:47 → EDBEDREQ 08-31 13:27 → 3E 08-31 18:44 → 4W 09-02 19:15 → 4E 09-04 07:21
PROC: 5A1935Z Respiratory Ventilation, Less than 24 Consecutive Hours (ICD-10-PCS; principal; 2016-08-30)
DX: J95.821 Acute postprocedural respiratory failure (principal); E11.9 Type 2 diabetes mellitus without complications; Y92.239 Unspecified place in hospital as the place of occurrence of the external cause; Y83.8 Other surgical procedures as the cause of abnormal reaction of the patient, or of later complication, without mention of misadventure at the time of the procedure; R09.02 Hypoxemia; Z98.1 Arthrodesis status; M50.10 Cervical disc disorder with radiculopathy, unspecified cervical region; Z79.4 Long term (current) use of insulin; Z86.73 Personal history of transient ischemic attack (TIA), and cerebral infarction without residual deficits; I25.2 Old myocardial infarction; F17.210 Nicotine dependence, cigarettes, uncomplicated
CPT/HCPCS: 36415; 36600; 71010; 80048; 80053; 82803; 82962; 84484; 85025; 85610; 85730; 87081; 93005; 94002; 94640; 94664; 94760; J1815; S5561